=== PATIENT | female | born 1975 | race Caucasian/White ===

== ENCOUNTER → 2017-10-09 | Outpatient (CLI) | payer BC ==
[2017-10-09 12:24] LABS: BASOPHILS % (AUTO) 0.7 % (0.2-1.0); EOSINOPHILS # (AUTO) 0.2 x10^3/uL (0.0-0.2); EOSINOPHILS % (AUTO) 2.7 % (0.9-2.9); HEMATOCRIT 42.7 % (36.0-47.0); HEMOGLOBIN 14.6 g/dL (12.0-16.0); LYMPHOCYTES # (AUTO) 1.2 X10^3/uL (1.3-2.9); LYMPHOCYTES % (AUTO) 20.4 % (21.0-51.0); MEAN CORPUSCULAR HEMOGLOBIN 33.4 pg (27.0-34.0); MEAN CORPUSCULAR HGB CONC 34.3 g/dL (33.0-35.0); MEAN CORPUSCULAR VOLUME 97.5 fL (80.0-100.0); MEAN PLATELET VOLUME 8.2 fL (7.4-11.0); MONOCYTES # (AUTO) 0.5 x10^3/uL (0.3-0.8); MONOCYTES % (AUTO) 8.6 % (0.0-13.0); NEUTROPHILS # (AUTO) 4.1 x10^3/uL (2.2-4.8); NEUTROPHILS % (AUTO) 67.6 % (42.0-75.0); PLATELET COUNT 242 X10^3/uL (150.0-450.0); RED BLOOD COUNT 4.38 X10^6/uL (3.5-5.4)
[2017-10-09 12:25] LABS: BILIRUBIN,URINE NEGATIVE (NEGATIVE); BLOOD/HEMOGLOBIN,URINE NEGATIVE (NEGATIVE); GLUCOSE, URINE NEGATIVE (NEGATIVE); KETONES,URINE NEGATIVE (NEGATIVE); LEUKOCYTE ESTERASE ,URINE NEGATIVE (NEGATIVE); NITRITES,URINE NEGATIVE (NEGATIVE); PROTEIN,URINE NEGATIVE (NEGATIVE); UROBILINOGEN,URINE NORMAL (NORMAL)
[2017-10-09 12:33] LABS: BLOOD UREA NITROGEN 10 mg/dL (7-18); CALCIUM 9.6 mg/dL (8.5-10.1); CHLORIDE 102 mmol/L (98-107); CREATININE 0.63 mg/dL (0.55-1.02); SODIUM 138 mmol/L (136-145); eGFR BLACK RACES > 60 (>60); eGFR NON BLACK RACES > 60 (>60)
[2017-10-09 12:35] LABS: APPEARANCE,URINE CLEAR (CLEAR); COLOR,URINE YELLOW (YELLOW); SERUM PREGNANCY TEST, QUAL NEGATIVE <10 mIU/mL
[2017-10-09 12:36] LABS: BACTERIA,URINE NEGATIVE /HPF (NEGATIVE); RBC,URINE 0-2 /HPF (NEGATIVE); SQUAMOUS EPITHELIAL CELL,UR NEGATIVE /HPF (NEGATIVE)
--- NOTE | 2017-10-09 14:19 | RAD ---
HISTORY: Preoperative exam for partial hysterectomy Study: Two views of the chest Comparison: None Findings: The trachea is midline. The cardiac silhouette is unremarkable. Overlying soft tissues limit detail on the AP view. Otherwise the lungs are clear without focal infiltrate or effusion. IMPRESSION: 1. No acute cardiopulmonary disease. Reported By:
== END | disposition home or self-care (01) | DRG 951 ==
LOC: LAB 11:33
PROVIDERS: ATTEND Specialist
DX: Z01.818 Encounter for other preprocedural examination (principal); Z01.810 Encounter for preprocedural cardiovascular examination; Z01.811 Encounter for preprocedural respiratory examination; Z01.812 Encounter for preprocedural laboratory examination; N92.5 Other specified irregular menstruation; N94.4 Primary dysmenorrhea; R10.2 Pelvic and perineal pain
CPT/HCPCS: 36415; 71046; 80048; 81001; 84703; 85025; 85610; 85730; 86850; 86900; 86901; 87086; 93005; 93010

== ENCOUNTER 2017-10-13 06:14 | Observation (INO) | payer BC ==
[2017-10-13] MEDS ORDERED: D5 1/2 NS 1000 ML 1,000 ML IV SCH ×2 (06:38→10:00)
[2017-10-13] MEDS ORDERED: ANCEF VIAL 1 GM 1 GM in NS 50 ML IV + SPIKE MINIBAG* 50 ML IV PRN (06:38)
[2017-10-13] MEDS ORDERED: ANCEF 1 GM IV PREMIX* 1 GM/50 ML BAG IV ONE (06:42)
[2017-10-13] MEDS ORDERED: VASOSTRICT INJ 20 UNITS VIAL ONE (06:57)
[2017-10-13] MEDS ORDERED: DURAMORPH ONE (06:59)
[2017-10-13 07:14] VITALS: BMI 23.9
[2017-10-13] MEDS ORDERED: NS IRRIGATION 1000 ML 1,000 ML IR ONE (08:51)
[2017-10-13] MEDS ORDERED: ZOFRAN INJ 4 MG VIAL ONE (09:03)
[2017-10-13] MEDS ORDERED: BENADRYL INJ 50 MG VIAL IVP PRN ×3 (09:07→09:32)
[2017-10-13] MEDS ORDERED: DILAUDID INJ IVP PRN (09:07)
[2017-10-13] MEDS ORDERED: REGLAN INJ 10 MG VIAL IVP PRN ×2 (09:07→09:32)
[2017-10-13] MEDS ORDERED: ZOFRAN INJ 4 MG VIAL IVP PRN ×2 (09:07→09:32)
[2017-10-13] MEDS ORDERED: PHENERGAN INJ 25 MG IVP PRN (09:07)
[2017-10-13 09:20] LABS: BILIRUBIN,URINE NEGATIVE (NEGATIVE); BLOOD/HEMOGLOBIN,URINE 5+ (NEGATIVE); GLUCOSE, URINE NEGATIVE (NEGATIVE); KETONES,URINE NEGATIVE (NEGATIVE); LEUKOCYTE ESTERASE ,URINE 1+ (NEGATIVE); NITRITES,URINE NEGATIVE (NEGATIVE); PROTEIN,URINE 2+ (NEGATIVE); UROBILINOGEN,URINE NORMAL (NORMAL)
[2017-10-13] MEDS ORDERED: TORADOL 30 MG VIAL IVP PRN ×2 (09:32)
[2017-10-13] MEDS ORDERED: PERCOCET TAB 5/325 MG PO PRN (09:32)
[2017-10-13] MEDS ORDERED: NEOSTIGMINE INJ ONE (09:44)
[2017-10-13] MEDS ORDERED: DIPRIVAN VIAL ONE (09:44)
[2017-10-13] MEDS ORDERED: QUELICIN (OR ANECTINE) ONE (09:44)
[2017-10-13] MEDS ORDERED: VERSED ONE (09:44)
[2017-10-13] MEDS ORDERED: ROBINUL ONE (09:44)
[2017-10-13] MEDS ORDERED: ULTANE GAS IN ONE (09:44)
[2017-10-13] MEDS ORDERED: NORCURON INJ 10 MG VIAL ONE (09:44)
[2017-10-13 09:49] LABS: AMORPHOUS SEDIMENT,UR 1+ /HPF (NEGATIVE); APPEARANCE,URINE CLEAR (CLEAR); BACTERIA,URINE NEGATIVE /HPF (NEGATIVE); COLOR,URINE YELLOW (YELLOW); MUCUS,URINE FEW /HPF (NEGATIVE); SQUAMOUS EPITHELIAL CELL,UR FEW /HPF (NEGATIVE)
[2017-10-13] MEDS: D5 1/2 NS 1000 ML 1,000 ML IV SCH ×3 (10:00→22:17)
[2017-10-13] MEDS ORDERED: D5 1/2 NS 1000 ML 1,000 ML IV ONE (10:37)
[2017-10-13] MEDS ORDERED: NORCO 5/325 MG TAB ONE (13:29)
[2017-10-13] MEDS: VISTARIL PO PRN ×2 (13:30→20:00)
[2017-10-13] MEDS ORDERED: VISTARIL PO ONE (13:31)
[2017-10-13] MEDS: ZOFRAN INJ 4 MG VIAL IVP PRN ×2 (15:32→19:59)
[2017-10-13] MEDS: NARCAN INJ IVP PRN (23:59)
[2017-10-14] MEDS: NARCAN INJ IVP PRN ×2 (03:34→06:18)
[2017-10-14 05:27] LABS: BASOPHILS % (AUTO) 0.3 % (0.2-1.0); EOSINOPHILS # (AUTO) 0.1 x10^3/uL (0.0-0.2); EOSINOPHILS % (AUTO) 1.8 % (0.9-2.9); HEMATOCRIT 36.4 % (36.0-47.0); HEMOGLOBIN 12.2 g/dL (12.0-16.0); LYMPHOCYTES % (AUTO) 13.4 % (21.0-51.0); MEAN CORPUSCULAR HEMOGLOBIN 33.2 pg (27.0-34.0); MEAN CORPUSCULAR HGB CONC 33.4 g/dL (33.0-35.0); MEAN CORPUSCULAR VOLUME 99.7 fL (80.0-100.0); MEAN PLATELET VOLUME 8.9 fL (7.4-11.0); MONOCYTES # (AUTO) 0.5 x10^3/uL (0.3-0.8); NEUTROPHILS % (AUTO) 77.5 % (42.0-75.0); PLATELET COUNT 180 X10^3/uL (150.0-450.0); RED BLOOD COUNT 3.66 X10^6/uL (3.5-5.4); RED CELL DISTRIBUTION WIDTH 11.9 % (11.6-16.5); WHITE BLOOD COUNT 7.8 X10^3/uL (3.6-10.0)
[2017-10-14 05:38] LABS: BLOOD UREA NITROGEN 9 mg/dL (7-18); CARBON DIOXIDE 28.7 mmol/L (21-32); CHLORIDE 105 mmol/L (98-107); CREATININE 0.56 mg/dL (0.55-1.02); SODIUM 138 mmol/L (136-145); eGFR BLACK RACES > 60 (>60); eGFR NON BLACK RACES > 60 (>60)
[2017-10-14] MEDS: D5 1/2 NS 1000 ML 1,000 ML IV SCH (05:59)
[2017-10-14 09:47] VITALS: BP 135/81
== END 2017-10-14 09:00 | disposition home or self-care (01) ==
LOC: SURG1 06:14 → MED/SURG 09:34
PROVIDERS: ADMIT Specialist; ATTEND Specialist
PROC: 0UTC7ZZ Resection of Cervix, Via Natural or Artificial Opening (ICD-10-PCS; 2017-10-13)
PROC: 0UT97ZZ Resection of Uterus, Via Natural or Artificial Opening (ICD-10-PCS; principal; 2017-10-13 07:30)
DX: N92.5 Other specified irregular menstruation (principal); N94.4 Primary dysmenorrhea; R10.2 Pelvic and perineal pain
CPT/HCPCS: 36415; 80048; 81001; 85025; A4216; A4222; Q0177; G0378; J0330; J0690; J1200; J1885; J2250; J2310; J2405; J2710; J2765; J3490; J7042